=== PATIENT | male | born 1965 | race Caucasian/White ===

== ENCOUNTER 2022-06-25 11:07 | Emergency (ER) | payer OTHER, SELFPAY ==
--- NOTE | 2022-06-25 11:47 | RAD REPORT ---
EXAM DESCRIPTION: CT - Head Brain Wo Cont - 06/25/2022 11:39 am CLINICAL HISTORY: CONFUSED Headache, COMPARISON: No comparisons TECHNIQUE: All CT scans are performed using dose optimization technique as appropriate and may inclu de automated exposure control or mA/KV adjustment according to patient size. FINDINGS: No intracranial hemorrhage, hydrocephalus or extra-axial fluid collection.No areas of brai n edema or evidence of midline shift. The paranasal sinuses and mastoids are clear. The calvarium is intact. IMPRESSION: No acute intracranial abnormality.
--- NOTE | 2022-06-25 12:50 | ER ---
Nurse's Notes [facility] Name: Charles Newton Age: 56 yrs Sex: Male : 1965 Arrival Date: 06/25/2022 Time: 11:15 Bed 14 Private MD: Diagnosis: Syncope Near;Concussion without loss of consciousness;Tachycardia, unspecified Presentation: 06/25 11:42 Chief complaint: EMS states: per EMS pt found down in mud, fell walking his dog. jh5 Possible CVA, pt says statements that don't make complete sense, he can answer name and , states he fell 2 weeks ago and 2 months ago and believes he has had a stroke. Pt refused IV blood work and IV therapy with EMS. Coronavirus screen: Vaccine status: Patient reports being unvaccinated. Client denies travel out of the [place] in the last 14 days. Ebola Screen: Patient negative for fever greater than or equal to 101.5 degrees Fahrenheit, and additional compatible Ebola Virus Disease symptoms Patient denies exposure to infectious person. Patient denies travel to an Ebola-affected area in the 21 days before illness onset. Initial Sepsis Screen: Does the patient meet any 2 criteria? No. Patient's initial sepsis screen is negative. Does the patient have a suspected source of infection? No. Patient's initial sepsis screen is negative. Risk Assessment: Do you want to hurt yourself or someone else? Patient reports no desire to harm self or others. 11:42 Method Of Arrival: EMS: [place] [address] 11:42 Acuity: FEDE 3 jh5 Triage Assessment: 11:46 General: Appears in no apparent distress. uncomfortable, unkempt, Behavior is calm, jh5 cooperative, appropriate for age. Pain: Denies pain. Historical: - Allergies: 11:46 No Known Allergies; 5 - PMHx: 11:46 None; 5 - Immunization history:: Adult Immunizations up to date. - Social history:: Smoking status: Patient denies any tobacco usage or history of. Screenin:46 [facility] ED Fall Risk Assessment (Adult) History of falling in the last 3 months, [facility] including since admission Yes- physiologic fall (2 pts) Confusion or Disorientation Yes (5 pts) Intoxicated or Sedated No (0 pts) Impaired Gait Yes (1 pt) Mobility Assist Device Used No (0 pt) Altered Elimination No (0 pt) Score/Fall Risk Level 3 or more points = High Risk. Abuse screen: Denies threats or abuse. Denies injuries from another. Nutritional screening: No deficits noted. Tuberculosis screening: No symptoms or risk factors identified. Assessment: 11:46 Reassessment: Dr. Polanco at bedside speaking to patient at this time; pt is refusing IV jh5 therapy and refusing blood work. Pt is also refusing to give a urine sample at this time. Pt verbalizes "I don't want to, I feel like I had 2 strokes before. I don't like needles or blood work and nothing else". Pt verbalizes "I do not want blood work, I understand the risks including from not doing blood work". 11:49 Reassessment: Pt also refusing to remain on key operator at this time; verbalizes he jh5 understands his heart rate is high but doesn't want to be connected to monitor. 12:45 Reassessment: Pt continues to refuse bloodwork and requesting to leave. 5 Vital Signs: 11:42 BP 151 / 98; Pulse 132; Resp 16; Temp 98.1(O); Pulse Ox 97% ; Weight 71.67 kg; Height 5 5 ft. 9 in. (175.26 cm); Pain 0/10; 13:12 BP 142 / 88; Pulse 128; Resp 16; Pulse Ox 97% ; jh5 11:42 Body Mass Index 23.33 (71.67 kg, 175.26 cm) 5 ED Course: 11:15 Patient arrived in ED. bs3 11:16 Ander Polanco MD is Attending Physician. bs3 11:40 CT Head Brain wo Cont In Process Unspecified. EDMS 11:46 Triage completed. jh5 11:46 Arm band placed on right wrist. jh5 11:46 Patient has correct armband on for positive identification. Call light in reach. Side [facility] rails up X2. 13:07 XRAY Chest (1 view) In Process Unspecified. EDMS 13:16 No provider procedures requiring assistance completed. Patient did not have IV access [facility] during this emergency room visit. Administered Medications: 13:12 Not Given (Patient Refused): NS 0.9% 1000 ml IV at 1 bolus Per protocol; 1000 mL bolus jh5 13:12 Not Given (Patient Refused): Rocephin (cefTRIAXone) 1 grams IV at bolus once; Given 5 slow IV push per pharmacy instructions Medication: 11:46 VIS not applicable for this client. jh5 Outcome: 12:50 Discharge ordered by . bs3 13:16 Discharged to home ambulatory. 5 13:16 Condition: good 13:16 Discharge instructions given to patient, Instructed on discharge instructions, follow up and referral plans. medication usage, safety practices, Demonstrated understanding of instructions, follow-up care, medications. 13:27 Patient left the ED. ss Signatures: Dispatcher [employer] EDMI Alley Galdamez RN RN Fatuma Peña RN RN jh5 Ander Polanco MD MD bs3 Corrections: (The following items were deleted from the chart) :46 11:46 Allergies: Aspirin; [place] [id number]
--- NOTE | 2022-06-25 12:50 | EDPHYS ---
Physician Documentation [facility] Name: Charles Newton Age: 56 yrs Sex: Male : 1965 Arrival Date: 06/25/2022 Time: 11:15 Bed 14 Private MD: ED Physician Ander Polanco HPI: 06/25 11:20 This 56 yrs old Male presents to ER via Unassigned with complaints of ams. bs3 11:20 56-year-old male no known past medical history presents by EMS for altered mental bs3 status per EMS we do not have a last known normal time but the patient recalls hitting his head 2 weeks ago he reportedly went out of his trailer and was found in the mud today unable to get up he was unsteady on his feet and tachycardic he wanted to stay in the mud for EMS and did not want to come to the hospital but they convinced him to come patient denies any complaints but is a poor historian he recalls waking up early today and watching TV but cannot recall what he watched he states he went outside to walk his dog but per EMS the story of the dog was a couple weeks ago when his dog pulled him and he fell per EMS the dog was in his house and the patient was on the ground outside. Per EMS he was hypertensive and brought in as a stroke alert. Historical: - Allergies: 11:46 No Known Allergies; 5 - PMHx: 11:46 None; [facility] - Immunization history:: Adult Immunizations up to date. - Social history:: Smoking status: Patient denies any tobacco usage or history of. ROS: 11:20 Constitutional: Negative for fever, chills bs3 11:20 All other systems are negative. Exam: 11:20 Constitutional: This is a well developed, well nourished patient who is awake, alert, bs3 and in no acute distress. Head/Face: Normocephalic, atraumatic. Eyes: Pupils equal round and reactive to light, extra-ocular motions intact. Lids and lashes normal. ENT: mmm, no posterior phyarngeal erythema Chest/axilla: Normal chest wall appearance and motion. Nontender with no deformity. No lesions are appreciated. Cardiovascular: Tachycardic no murmur Respiratory: Lungs have equal breath sounds bilaterally, clear to auscultation, no respiratory distress Abdomen/GI: Soft, non-tender, no rebound or guarding Back: No spinal tenderness. No costovertebral tenderness. Full range of motion. Skin: Warm, dry with normal turgor. Normal color with no rashes, no lesions, and no evidence of cellulitis. MS/ Extremity: Pulses equal, no cyanosis. Neurovascular intact. Full, normal range of motion. Neuro: Awake and alert, GCS 15, oriented to person, place, time, and situation. Cranial nerves II-XII grossly intact. Motor strength 5/5 in all extremities. Sensory grossly intact. Normal strength in upper and lower extremities he has no visual field deficits his NIH score is 0 but he has poor recollection of events and is repetitive. He does know that it is Saturday and it is June Vital Signs: 11:42 BP 151 / 98; Pulse 132; Resp 16; Temp 98.1(O); Pulse Ox 97% ; Weight 71.67 kg; Height 5 jh5 ft. 9 in. (175.26 cm); Pain 0/10; 13:12 BP 142 / 88; Pulse 128; Resp 16; Pulse Ox 97% ; jh5 11:42 Body Mass Index 23.33 (71.67 kg, 175.26 cm) jh5 MDM: 11:16 Patient medically screened. bs3 11:20 Differential Diagnosis altered mental status, sepsis, Possible traumatic brain injury, bs3 less likely CVA given no focal deficits, possible electrolyte abnormality possible infection will evaluate for urinary tract infection, pneumonia possible syncopal episode will get EKG Will place on telemetry EMS was used as an independent historian as patient has poor recollection of facts. Data reviewed: vital signs, nurses notes, EMS record. 11:41 ED course: ECG sinus tachycardia at [address] elevations or depressions QTc 460 I was bs3 called to the nurse as patient was refusing IV, blood work. I informed her of the importance of this however he refused he understood the risk and benefits of treatment using teach back he understood that he could have a life-threatening illness. 12:48 Independent interpretation of the following test(s) in the Emergency Department X-Ray: bs3 My interpretation is X-ray chest no acute pathology as read by myself. CT Scan: My interpretation is No acute pathology no bleed. ED course: I discussed again with the patient and recommended blood work IV fluid urinalysis and further work-up and he again refused treatment he understood the risks and benefits including sepsis life-threatening infection and he states that he does not want IVs and is only worried about his head the nurse was at bedside and also spoke with the patient and reviewed the risks and benefits. 06/25 11:19 Order name: CT Head Brain wo Cont; Complete Time: 12:28 bs3 06/25 11:19 Order name: XRAY Chest (1 view) bs3 06/25 11:19 Order name: EKG; Complete Time: 11:20 bs3 06/25 11:19 Order name: Accucheck; Complete Time: 11:40 bs3 06/25 11:19 Order name: Cardiac monitoring; Complete Time: 11:40 bs3 06/25 11:19 Order name: EKG - Nurse/Tech; Complete Time: 11:40 bs3 06/25 11:19 Order name: O2 Per Protocol; Complete Time: 11:40 bs3 06/25 11:19 Order name: O2 Sat Monitoring; Complete Time: 11:40 bs3 06/25 11:19 Order name: Vital Signs; Complete Time: 13:12 bs3 Administered Medications: 13:12 Not Given (Patient Refused): NS 0.9% 1000 ml IV at 1 bolus Per protocol; 1000 mL bolus jh5 13:12 Not Given (Patient Refused): Rocephin (cefTRIAXone) 1 grams IV at bolus once; Given jh5 slow IV push per pharmacy instructions Disposition Summary: 06/25/22 12:50 Discharge Ordered Location: Home bs3 Problem: new bs3 Symptoms: are resolved bs3 Condition: Undetermined bs3 Diagnosis - Syncope Near bs3 - Concussion without loss of consciousness bs3 - Tachycardia, unspecified bs3 Followup: bs3 - With: Private Physician - When: Today - Reason: Re-evaluation by your physician Discharge Instructions: - Discharge Summary Sheet bs3 - Near-Syncope bs3 - Concussion, Adult, [id number] bs3 - Sinus Tachycardia bs3 Forms: - Medication Reconciliation Form bs3 - Thank You Letter bs3 - Antibiotic Education bs3 - Prescription Opioid Use bs3 Signatures: Dispatcher [employer] Fatuma Trevino RN RN jh5 Ander Polanco MD MD bs3 Corrections: (The following items were deleted from the chart) 11:40 11:19 IV Saline Lock - Large Bore ordered. bs3 jh5 11:19 Labs collected and sent ordered. bs3 jh5 46 11:46 Allergies: Aspirin; [facility] jh5
--- NOTE | 2022-06-25 13:12 | RAD REPORT ---
EXAM DESCRIPTION: Ximena Single View06/25/2022 1:05 pm CLINICAL HISTORY: Cough COMPARISON: none FINDINGS: Mild right basilar lung opacities Left lung appears clear. Heart is normal size IMPRESSION: Mild right lung opacities could represent areas of atelectasis or pneumonia
[2022-06-25 13:33] VITALS: TEMP 98.1; O2SAT 97
[2022-06-25 13:34] VITALS: BP 142/88
== END 2022-06-25 13:27 | disposition home or self-care (01) ==
LOC: ER 11:07
DX: S06.0X0A Concussion without loss of consciousness, initial encounter (principal); R00.0 Tachycardia, unspecified; R55 Syncope and collapse; Z20.822 Contact with and (suspected) exposure to COVID-19
CPT/HCPCS: 70450; 71045; 93005

== ENCOUNTER → 2023-08-12 | Emergency (ER) | payer SELFPAY ==
--- NOTE | 2023-08-12 22:13 | RAD REPORT ---
EXAM DESCRIPTION: CT - Head C Spine Mpr Wo Con - 08/12/2023 9:57 pm CLINICAL HISTORY: Head and neck injury status post fall. Head and neck pain COMPARISON: 2022 TECHNIQUE: Computed axial tomography of the head and cervical spine was obtained. Sagittal and coronal reconstruction was performed. All CT scans are performed using dose optimization technique as appropriate and may include automated exposure control or mA/KV adjustment according to patient size. FINDINGS: A left parietal scalp hematoma The An intracranial bleed is not seen. The ventricles are normal in caliber. No significant hypodensity within the brain. An extra-axial fluid collection is not noted. A small amount of fluid right maxillary sinus may indicate acute sinusitis. Moderate to marked mucoperiosteal thickening left maxillary sinus. Mastoids clear A cervical fracture is not visualized. No dislocation is noted. Slight posterior subluxation of C5 on C6 and C6 on C7. Loss of the normal lordosis cervical spine. Pr ominent spondylosis C5-6 IMPRESSION: No acute intracranial abnormality is seen. A cervical fracture is not visualized. Loss of the normal lordosis of the cervical spine may be secondary to muscle spasm If the patient continues to have symptoms to suggest intracranial /spinal cord pathology then MRI wou ld be recommended
--- NOTE | 2023-08-12 23:32 | EDPHYS ---
Physician Documentation [facility] Name: Charles Newton Age: 58 yrs Sex: Male : 1965 Arrival Date: 08/12/2023 Time: 20:53 Bed 9 Private MD: ED Physician Carson Butcher HPI: 08/11 21:15 This 58 yrs old Male presents to ER via EMS with complaints of Head Injury. cp 21:15 The patient or guardian reports injury. The complaints affect the scalp. Context of cp injury: The problem was sustained outdoors, resulted from a fall, from a standing position. Onset: The symptoms/episode began/occurred just prior to arrival. Associated signs and symptoms: Pertinent positives: headache, drinking of alcohol, Pertinent negatives: neck pain, vomiting. Historical: - Allergies: 21:11 No Known Allergies; tl4 - Home Meds: 21:11 None [Active]; tl4 - PMHx: 21:11 None; tl4 - PSHx: 21:11 None; tl4 - Immunization history:: Adult Immunizations unknown. - Social history:: Smoking status: Patient denies any tobacco usage or history of. Patient uses alcohol, Patient/guardian denies using street drugs. ROS: 21:20 Constitutional: Negative for body aches, chills, fever, poor PO intake, cp 21:20 Eyes: Negative for injury, pain, redness, and discharge, cp 21:20 Neck: Negative for stiffness, 21:20 Cardiovascular: Negative for chest pain, 21:20 Respiratory: Negative for cough, shortness of breath, wheezing, 21:20 Abdomen/GI: Negative for abdominal pain, vomiting, diarrhea, constipation, 21:20 Back: Negative for pain at rest, pain with movement, 21:20 Neuro: Positive for headache, Negative for altered mental status, weakness, 21:20 All other systems are negative, Exam: 21:25 Constitutional: The patient appears in no acute distress, alert, awake, cp non-diaphoretic, non-toxic, well developed, well nourished, 21:25 Head/face: Noted is hematoma, that is moderate, of the left occipital area and right cp occipital area, a laceration(s), that is superficial, that is linear, of the left occipital area and right occipital area, tenderness, that is mild, of the left occipital area and right occipital area, 21:25 Eyes: Periorbital structures: appear normal, Pupils: constricted, bilaterally, Extraocular movements: intact throughout, Conjunctiva: normal, no exudate, no injection, Sclera: no appreciated abnormality, Lids and lashes: appear normal, bilaterally, 21:25 ENT: External ear(s): are unremarkable, Nose: is normal, Mouth: Lips: moist, Oral mucosa: pink and intact, moist, Posterior pharynx: Airway: no evidence of obstruction, patent, 21:25 Neck: C-spine: vertebral tenderness, is not appreciated, crepitus, is not appreciated, ROM/movement: is normal, is supple, without pain, no range of motions limitations, 21:25 Chest/axilla: Inspection: normal, Palpation: is normal, no crepitus, no tenderness, 21:25 Cardiovascular: Rate: normal, Rhythm: regular, Edema: is not appreciated, JVD: is not appreciated, 21:25 Respiratory: the patient does not display signs of respiratory distress, Respirations: normal, no use of accessory muscles, no retractions, labored breathing, is not present, Breath sounds: are clear throughout, no decreased breath sounds, no stridor, no wheezing, 21:25 Abdomen/GI: Inspection: abdomen appears normal, Palpation: abdomen is soft and non-tender, in all quadrants, 21:25 Back: vertebral tenderness, is not appreciated, 21:25 Musculoskeletal/extremity: Exam is negative for decreased range of motion, deformity, injury, 21:25 Neuro: Orientation: to person, place, situation, Mentation: able to follow commands, Motor: moves all fours, strength is normal, Gait: is steady, at a normal pace, Vital Signs: 21:08 BP 168 / 88; Pulse 85; Resp 16; Temp 98.4(O); Pulse Ox 98% on R/A; Weight 90.72 kg; tl4 Height 5 ft. 10 in. ; Pain 6/10; 22:33 BP 155 / 89; Pulse 75; Resp 18; Pulse Ox 97% on R/A; Pain 0/10; tl4 23:37 BP 145 / 75; Pulse 71; Resp 18; Temp 97.9(TE); Pulse Ox 99% on R/A; Pain 0/10; tl4 21:08 Body Mass Index 28.70 (90.72 kg, 177.8 cm) tl4 21:08 Pain Scale: Adult tl4 22:33 Pain Scale: Adult tl4 23:37 Pain Scale: Adult tl4 Herndon Coma Score: 21:15 Eye Response: spontaneous(4). Motor Response: obeys commands(6). Verbal Response: cp oriented(5). Total: 15. MDM: 21:02 Patient medically screened. cp 23:30 Data reviewed: vital signs, nurses notes, radiologic studies, CT scan. cp 23:30 Differential diagnosis: Contusion of head, Hematoma on Laceration of Intracranial cp bleed- Concussion cerebral contusion. Counseling: I had a detailed discussion with the patient and/or guardian regarding the historical points, exam findings, and any diagnostic results supporting the discharge/admit diagnosis, radiology results, to return to the emergency department if symptoms worsen or persist or if there are any questions or concerns that arise at home. Special discussion: Based on the patient's history, exam and DX evaluation, there is no indication for emergent intervention or inpatient TX. It is understood by the patient/guardian that if the SXs persist or worsen they need to return immediately for re-evaluation. ED course: VSS. Patient released to friend who will continue to monitor patient at home. 08/11 21:03 Order name: CT Head C Spine; Complete Time: 22:17 cp 08/11 22:18 Interpretation: Reviewed report. cp 08/11 21:03 Order name: EKG; Complete Time: 21:04 cp 08/11 21:03 Order name: Suicide Screening ([place]); Complete Time: 22:49 cp Administered Medications: No medications were administered Disposition Summary: 08/12/23 23:31 Discharge Ordered Notes: Location: Home cp Problem: new cp Symptoms: have improved cp Condition: Stable cp Diagnosis - Contusion of unspecified part of head, initial encounter - from fall cp Followup: cp - With: Private Physician - When: 1 - 2 days - Reason: Recheck today's complaints Discharge Instructions: - Discharge Summary Sheet cp - Facial or Scalp Contusion cp - Head Injury, Adult cp - Hematoma cp Forms: - Medication Reconciliation Form cp - Thank You Letter cp - Antibiotic Education cp - Prescription Opioid Use cp - Patient Portal Instructions cp - Leadership Thank You Letter cp Signatures: Dispatcher [employer] EDMS Edilberto Kelly PA PA Russell Solano, RN RN tl4 Corrections: (The following items were deleted from the chart) 21:03 EKG - Nurse/Tech ordered. cp tl4 21:03 IV Saline Lock ordered. cp tl4 21:03 Labs collected and sent ordered. cp tl4
--- NOTE | 2023-08-12 23:32 | ER ---
Nurse's Notes [facility] Name: Charles Newton Age: 58 yrs Sex: Male : 1965 Arrival Date: 08/12/2023 Time: 20:53 Bed 9 Private MD: Diagnosis: Contusion of unspecified part of head, initial encounter-from fall Presentation: 08/11 21:08 Chief complaint: Patient states: Pt states he fell backward and struck the back of his tl4 head on concrete sidewalk. Pt denies LOC. Pt c/o head pain. Pt states "I had a lot to drink". Coronavirus screen: At this time, the client does not indicate any symptoms associated with coronavirus-19. Ebola Screen: No symptoms or risks identified at this time. Initial Sepsis Screen: Does the patient meet any 2 criteria? No. Patient's initial sepsis screen is negative. Does the patient have a suspected source of infection? No. Patient's initial sepsis screen is negative. Risk Assessment: Do you want to hurt yourself or someone else? Patient reports no desire to harm self or others. Onset of symptoms was August 12, 2023 at 20:00. 21:08 Method Of Arrival: EMS: [facility] tl4 21:08 Acuity: FEDE 3 tl4 Triage Assessment: 21:11 General: Appears in no apparent distress. Behavior is cooperative. Pain: Complains of tl4 pain in scalp. EENT: No deficits noted. No signs and/or symptoms were reported regarding the EENT system. Neuro: Level of Consciousness is awake, alert, obeys commands, Oriented to person, place, time, situation, Moves all extremities. Gait is steady, Speech is normal, Facial symmetry appears normal. Cardiovascular: Capillary refill < 3 seconds Patient's skin is warm and dry. Respiratory: Airway is patent Respiratory effort is even, unlabored, Respiratory pattern is regular, symmetrical, Breath sounds are clear bilaterally. GI: No deficits noted. No signs and/or symptoms were reported involving the gastrointestinal system. : No deficits noted. No signs and/or symptoms were reported regarding the genitourinary system. Derm: No deficits noted. No signs and/or symptoms reported regarding the dermatologic system. Musculoskeletal: No deficits noted. No signs and/or symptoms reported regarding the musculoskeletal system. Injury Description: Head injury sustained to scalp bleeding, did not have loss of consciousness. Historical: - Allergies: 21:11 No Known Allergies; tl4 - Home Meds: 21:11 None [Active]; tl4 - PMHx: 21:11 None; tl4 - PSHx: 21:11 None; tl4 - Immunization history:: Adult Immunizations unknown. - Social history:: Smoking status: Patient denies any tobacco usage or history of. Patient uses alcohol, Patient/guardian denies using street drugs. Screenin:01 [facility] ED Fall Risk Assessment (Adult) History of falling in the last 3 months, tl4 including since admission Yes- single mechanical fall (1 pt) Confusion or Disorientation No (0 pts) Intoxicated or Sedated Yes (3 pts) Impaired Gait No (0 pts) Mobility Assist Device Used No (0 pt) Altered Elimination No (0 pt) Score/Fall Risk Level 3 or more points = High Risk Oriented to surroundings, Maintained a safe environment, Educated pt \\T\\ family on fall prevention, incl call for assistance when getting out of bed, Assessed \\T\\ reinforced patient's understanding of fall precautions, Hourly rounding (assess needs \\T\\ fall precautionary measures) done, Used ambulatory aids as needed (educated on \\T\\ assisted with), Used gait belt as appropriate. Abuse screen: Denies threats or abuse. Denies injuries from another. Nutritional screening: No deficits noted. Tuberculosis screening: No symptoms or risk factors identified. Assessment: 21:58 Reassessment: Patient and/or family updated on plan of care and expected duration. Pain tl4 level reassessed. Patient is alert, oriented x 3, equal unlabored respirations, skin warm/dry/pink. Pt is refusing all treatment. Edilberto Page to bedside. Pt will wait for CT scan. 22:31 Reassessment: No changes from previously documented assessment. Patient and/or family tl4 updated on plan of care and expected duration. Pain level reassessed. Patient is alert, oriented x 3, equal unlabored respirations, skin warm/dry/pink. Pt still refusing any additional treatment. Friend Salome [phone] called, she will be here in approx 45 min. Pt updated. Edilberto Page ok for patient to refuse additional treatment. Psych: 22:39 [place] Suicide Severity Screening: In the past month, have you wished you were tl4 or wished you could go to sleep and not wake up? Patient responds "No." "In the past month, have you actually had any thoughts of killing yourself?" Patient responds "no." "In your lifetime, have you ever done anything, started to do anything, or prepared to do anything to end your life?" Patient responds "no.". 23:38 Subjective: Patient's mood is elevated. Objective: Patient is cooperative. tl4 Interventions: pt is not suicidal. Safety Checks: pt is not suicidal. Patient uses pt states he uses ETOH occasionally. Commitment: NA. Vital Signs: 21:08 BP 168 / 88; Pulse 85; Resp 16; Temp 98.4(O); Pulse Ox 98% on R/A; Weight 90.72 kg; tl4 Height 5 ft. 10 in. ; Pain 6/10; 22:33 BP 155 / 89; Pulse 75; Resp 18; Pulse Ox 97% on R/A; Pain 0/10; tl4 23:37 BP 145 / 75; Pulse 71; Resp 18; Temp 97.9(TE); Pulse Ox 99% on R/A; Pain 0/10; tl4 21:08 Body Mass Index 28.70 (90.72 kg, 177.8 cm) tl4 21:08 Pain Scale: Adult tl4 22:33 Pain Scale: Adult tl4 23:37 Pain Scale: Adult tl4 [place] Coma Score: 21:15 Eye Response: spontaneous(4). Motor Response: obeys commands(6). Verbal Response: cp oriented(5). Total: 15. ED Course: 21:02 Patient arrived in ED. vk 21:02 Edilberto Kelly PA is PHCP. cp 21:02 Carson Butcher MD is Attending Physician. cp 21:07 Russell Shaw, KARINA is Primary Nurse. tl4 21:11 Triage completed. tl4 21:13 Arm band placed on left wrist. tl4 21:25 Patient has correct armband on for positive identification. Placed in gown. Bed in low tl4 position. Call light in reach. Side rails up X2. Provided Education on: ED process. Client placed on continuous cardiac and pulse oximetry monitoring. NIBP monitoring applied. Door closed. Noise minimized. Lights dimmed. Moved to private room. Warm blanket given. 21:59 CT Head C Spine In Process Unspecified. EDMS 22:02 No provider procedures requiring assistance completed. tl4 22:35 Patient did not have IV access during this emergency room visit. tl4 23:36 Wound care: to abrasion, located on scalp was cleaned with soap and water, Patient tl4 tolerated well. Administered Medications: No medications were administered Medication: 22:01 VIS not applicable for this client. tl4 Outcome: 23:31 Discharge ordered by . hussein 23:37 Discharged to home ambulatory, with family, tl4 23:37 Condition: stable 23:37 Discharge instructions given to patient, Instructed on discharge instructions, follow up and referral plans. wound care, Demonstrated understanding of instructions, follow-up care, wound care, 23:40 Patient left the ED. tl4 Signatures: Dispatcher [employer] EDMS Edilberto Kelly PA PA cp Logdahl, Toni RN RN tl4 Elizabeth Suarez
[2023-08-12 23:52] VITALS: BP 145/75; TEMP 97.9; O2SAT 99
== END ==
LOC: ER 20:53
DX: S00.83XA Contusion of other part of head, initial encounter (principal); W18.30XA Fall on same level, unspecified, initial encounter
CPT/HCPCS: 70450; 72125; 99284

== ENCOUNTER 2023-08-16 15:08 | Emergency (ER) | payer SELFPAY ==
--- NOTE | 2023-08-16 16:06 | RAD REPORT ---
EXAM DESCRIPTION: CT - [id number] - 08/16/2023 3:54 pm CLINICAL HISTORY: Trauma, head and neck injury. TRAUMA COMPARISON: <Comparisons> TECHNIQUE: Axial 5 mm thick images of the head were obtained. Axial 2 mm thick images of the cervical spine were obtained with sagittal and coronal reconstruction images generated and reviewed. All CT scans are performed using dose optimization technique as appropriate and may include automated exposure control or mA/KV adjustment according to patient size. FINDINGS: CT HEAD WITHOUT CONTRAST: No acute hemorrhage, hydrocephalus or extra-axial collection is identified.No areas of brain edema or midline shift. Moderate mucosal thickening left maxillary antrum. The paranasal sinuses and mastoids are otherwise c lear.The calvarium is intact. CT CERVICAL SPINE WITHOUT CONTRAST: No fracture or subluxation.Mild lower cervical degenerative spondylosis.No prevertebral soft tissues swelling is identified. IMPRESSION: No acute intracranial or cervical spine findings.
--- NOTE | 2023-08-16 16:43 | EDPHYS ---
Physician Documentation [facility] Name: Charles Newton Age: 58 yrs Sex: Male : 1965 Arrival Date: 08/16/2023 Time: 15:08 Bed 8 Private MD: ED Physician Dav Choudhury HPI: 08/15 15:21 This 58 yrs old Male presents to ER via Unassigned with complaints of Fall Injury. kb 15:21 Pt is a 58 year old male who was brought in after a fall. States he fell last night, kb then again today hitting the back of his head and causing laceration. Pt denies loc. States he gets dizzy prior to falling. Pt drinks alcohol daily. . Historical: - Allergies: 15:30 No Known Allergies; bp - Home Meds: 15:30 None [Active]; bp - PMHx: 15:30 None; bp - Immunization history:: Adult Immunizations up to date. - Social history:: Smoking status: Patient reports the use of cigarette tobacco products, unknown amount. ROS: 15:23 Constitutional: As per HPI kb Exam: 15:23 Constitutional: This is a well developed, well nourished patient who is awake, alert, kb and in no acute distress. Eyes: Pupils equal round and reactive to light, extra-ocular motions intact. Lids and lashes normal. Conjunctiva and sclera are non-icteric and not injected. Cornea within normal limits. Periorbital areas with no swelling, redness, or edema. ENT: Moist Mucous membranes Cardiovascular: Regular rate Respiratory: Respirations even and unlabored. No increased work of breathing. Talking in full sentences Abdomen/GI: Soft, non-tender. No distention Back: No spinal tenderness. No costovertebral tenderness. Full range of motion. Skin: Warm, dry with normal turgor. Normal color. MS/ Extremity: Pulses equal, no cyanosis. Neurovascular intact. Full, normal range of motion. Neuro: Awake and alert, GCS 15, oriented to person, place, time, and situation. Moves all extremities. Vital Signs: 15:29 BP 130 / 82; Pulse 107; Resp 16; Temp 98; Pulse Ox 95% on R/A; bp 16:36 bp 16:36 PT REFUSED bp MDM: 15:13 Patient medically screened. kb 15:22 Data reviewed: vital signs, nurses notes. Historians other than the Patient: EMS: [facility]. Refusal of service: The patient/guardian displays adequate decision making capability and despite a detailed discussion of alternatives, benefits, risks, and consequences refuses: all lab tests, any needle sticks. 16:42 Differential diagnosis: abrasion, closed head injury, contusion, fracture, laceration. kb Counseling: I had a detailed discussion with the patient and/or guardian regarding the historical points, exam findings, and any diagnostic results supporting the discharge/admit diagnosis, radiology results, the need for outpatient follow up, a family practitioner, to return to the emergency department if symptoms worsen or persist or if there are any questions or concerns that arise at home. ED course: 2cm laceration to back of scalp, bleeding controlled. Recommended magalie to repair laceration. Pt refused any repair. States he doesn't want magalie or sutures, he will just let it heal on its own. Pt continues to refuse any other treatment. . 08/15 15:14 Order name: CT Head C Spine; Complete Time: 16:10 kb 08/15 15:14 Order name: EKG; Complete Time: 15:15 kb 08/15 15:14 Order name: Cardiac monitoring; Complete Time: 15:46 kb 08/15 15:14 Order name: NPO; Complete Time: 15:32 kb 08/15 15:14 Order name: O2 Per Protocol; Complete Time: 15:32 kb 08/15 15:14 Order name: O2 Sat Monitoring; Complete Time: 15:32 kb 08/15 15:14 Order name: Wound Care: clean wound ; Complete Time: 15:51 kb Administered Medications: 15:21 Not Given (Patient Refused): ns 0.9% 1000 ml IV at 1000 ml once cp4 15:46 Not Given (Patient Refused): boostrix tdap0.5 ml IM once; as a single dose bp Disposition: 17:48 Co-signature as Attending Physician, Dav Choudhury MD I reviewed the patient's care rn provided by the Advanced Practice Provider and agree with the diagnosis and treatment plan. Disposition Summary: 08/16/23 16:42 Discharge Ordered Notes: Location: Home kb Condition: Stable kb Diagnosis - Unspecified injury of head, initial encounter kb - Fall on same level, unspecified kb Followup: kb - With: Emergency Department - When: As needed - Reason: Worsening of condition Followup: kb - With: Private Physician - When: 2 - 3 days - Reason: Recheck today's complaints, Continuance of care, Re-evaluation by your physician Discharge Instructions: - Discharge Summary Sheet kb - Head Injury, Adult, [id number] kb Forms: - Medication Reconciliation Form kb - Thank You Letter kb - Antibiotic Education kb - Prescription Opioid Use kb - Patient Portal Instructions kb - Leadership Thank You Letter kb Signatures: Dispatcher [employer] EDTX Jo Ann Linton, PARCEL POST ORDER CLERK-C PARCEL POST ORDER CLERK-Ckb Dav Choudhury MD MD rn Washington Da Silva, RN RN Pippa Rico cp4 Corrections: (The following items were deleted from the chart) 15:46 15:14 EKG - Nurse/Tech ordered. kb bp 15:46 15:14 IV Saline Lock ordered. bp 15:46 15:14 Labs collected and sent ordered. kb bp
--- NOTE | 2023-08-16 16:43 | ER ---
Nurse's Notes [facility] Name: Charles Newton Age: 58 yrs Sex: Male : 1965 Arrival Date: 08/16/2023 Time: 15:08 Bed 8 Private MD: Diagnosis: Unspecified injury of head, initial encounter;Fall on same level, unspecified Presentation: 08/15 15:29 Chief complaint: EMS states: MX RECENT ETOH RELATED FALLS, TODAY WITH LEFT MASTOID LAC. bp Coronavirus screen: At this time, the client does not indicate any symptoms associated with coronavirus-19. Ebola Screen: No symptoms or risks identified at this time. Initial Sepsis Screen: Does the patient meet any 2 criteria? HR > 90 bpm. No. Patient's initial sepsis screen is negative. Does the patient have a suspected source of infection? No. Patient's initial sepsis screen is negative. Risk Assessment: Do you want to hurt yourself or someone else? Patient reports no desire to harm self or others. Onset of symptoms is unknown. Care prior to arrival: Bleeding of injury controlled. Injury dressed. 15:29 Method Of Arrival: EMS: [facility] bp 15:29 Acuity: FEDE 3 bp Triage Assessment: 15:30 General: Appears in no apparent distress. Behavior is cooperative, appropriate for age, bp anxious. Pain: Complains of pain in head. Injury Description: Laceration sustained to back of head is 2.6 to 7.5 cm long. Historical: - Allergies: 15:30 No Known Allergies; bp - Home Meds: 15:30 None [Active]; bp - PMHx: 15:30 None; bp - Immunization history:: Adult Immunizations up to date. - Social history:: Smoking status: Patient reports the use of cigarette tobacco products, unknown amount. Screenin:31 [facility] ED Fall Risk Assessment (Adult) History of falling in the last 3 months, bp including since admission Yes- fall prone (multiple falls) (3 pts) Confusion or Disorientation No (0 pts) Intoxicated or Sedated Yes (3 pts) Impaired Gait No (0 pts) Mobility Assist Device Used No (0 pt) Altered Elimination No (0 pt) Score/Fall Risk Level 3 or more points = High Risk Oriented to surroundings, Assessed \\T\\ reinforced patient's understanding of fall precautions. Abuse screen: Denies threats or abuse. Denies injuries from another. Nutritional screening: No deficits noted. Tuberculosis screening: No symptoms or risk factors identified. Assessment: 15:22 Reassessment: Patient refused IV and blood draw stating "I don't like needles". cp4 15:31 General: SEE TRIAGE NOTE. bp 15:46 Reassessment: PT CONTINUES TO REFUSE CARE EXCEPT FOR WOUND CARE AND CT, PROVIDER bp NOTIFIED. 16:42 Reassessment: PT REFUSING WOUND CARE OR OTHER HEALTH CARE. TO BE RELEASED TO FRIEND. bp Vital Signs: 15:29 BP 130 / 82; Pulse 107; Resp 16; Temp 98; Pulse Ox 95% on R/A; bp 16:36 bp 16:36 PT REFUSED bp ED Course: 15:13 Patient arrived in ED. cp4 15:13 Jo Ann Linton FNP-C is PHCP. kb 15:13 Dav Choudhury MD is Attending Physician. kb 15:29 Washington Da Silva, RN is Primary Nurse. bp 15:30 Triage completed. bp 15:30 Arm band placed on. bp 15:31 Patient has correct armband on for positive identification. bp 15:47 Wound care: to abrasion, located on back of head was cleaned with soap and water, bp Patient tolerated well. 15:54 CT Head C Spine In Process Unspecified. EDMS 16:36 No provider procedures requiring assistance completed. Patient did not have IV access bp during this emergency room visit. Wound care: was PT REFUSED DRESSING. 16:46 Provided Education on: N/A. bp Administered Medications: 15:21 Not Given (Patient Refused): ns 0.9% 1000 ml IV at 1000 ml once cp4 15:46 Not Given (Patient Refused): boostrix tdap0.5 ml IM once; as a single dose bp Medication: 15:31 VIS not applicable for this client. bp Outcome: 16:42 Discharge ordered by MD. kb 16:45 Discharged to home via wheelchair, with friend, bp 16:45 Condition: stable 16:45 Discharge instructions given to patient, Instructed on discharge instructions, follow up and referral plans. wound care, Demonstrated understanding of instructions, follow-up care, wound care, 16:46 Patient left the ED. bp Signatures: Dispatcher [employer] EDMS Jo Ann Linton FNP-C CHIEF OPERATOR HYDROFORMER-Ckb Washington Da Silva RN RN bp Pippa Owens cp4
[2023-08-16 17:06] VITALS: BP 130/82; TEMP 98; O2SAT 95
== END 2023-08-16 16:46 | disposition home or self-care (01) ==
LOC: ER 15:08
DX: S01.01XA Laceration without foreign body of scalp, initial encounter (principal); W18.30XA Fall on same level, unspecified, initial encounter
CPT/HCPCS: 70450; 72125; 99284